=== PATIENT | female | born 1955 | race Caucasian/White ===

== ENCOUNTER 2016-09-26 08:09 | Emergency (ER) | payer OTHER ==
[~2016-09-26] VITALS: Ht 144.8 cm; Wt 66.0 kg
[2016-09-26 08:41] VITALS: Ht 144.8 cm; Wt 66.0 kg
[2016-09-26] MEDS ORDERED: UDROBDM PO (09:00)
[2016-09-26] MEDS ORDERED: IBUP-1542 PO (09:00)
[2016-09-26] MEDS ORDERED: ALBU8.5H3 INH (09:00)
[2016-09-26] MEDS ORDERED: AZIT250T94 PO (09:00)
[2016-09-26] MEDS ORDERED: CETI10CA PO (09:00)
--- NOTE | 2016-09-26 09:09 | ERD ---
ER Documentation Chief Complaint Date/Time DATE: 09/26/16 TIME: 09:03 Chief Complaint NON-PRODUCTIVE COUGH X2 WEEKS WITH CHEST PAIN HPI Is a 61-year-old female who presents to the emergency department today complaining of a cough for the past 2-3 weeks. States she has tried some over- the-counter medications but she is unsure of the names. She does have a cough during the day but it is worse at night. Denies any sick contacts. Denies any fevers or chills. ROS All systems reviewed and are negative except as per history of present illness. Medications Home Meds Active Scripts Cetirizine Hcl* (Zyrtec*) 10 Mg Capsule, 10 MG PO DAILY, #10 TAB.CHEW Prov:RAUL PERALTA PA-C 09/26/16 Guaifenesin-Dextromethorphan* (Robitussin* DM) 100MG/10MG/5ML Syrup, 10 ML PO Q4H Y for COUGH for 5 Days, ML Prov:RAUL PERALTA PA-C 09/26/16 Albuterol Sulfate* (Proair HFA*) 8.5 Gm Hfa.aer.ad, 2 PUFF INH Q4, #1 INHALER Prov:RAUL PERALTA PA-C 09/26/16 Ibuprofen* (Motrin*) 600 Mg Tab, 600 MG PO Q6, #30 TAB Prov:RAUL PERALTA PA-C 09/26/16 Azithromycin* (Zithromax*) 250 Mg Tablet, 250 MG PO .ZPACK DIRECTED, #6 TAB TAKE 500 MG (2 TABS) THE FIRST DAY THEN 250 MG (1 TAB) DAYS 2-5 Prov:RAUL PERALTA PA-C 09/26/16 Physical Exam Vitals Vital Signs Date Time Temp Pulse Resp B/P Pulse Ox O2 Delivery O2 Flow Rate FiO2 09/26/16 08:41 97.9 65 18 152/80 98 Physical Exam Const: No acute distress Head: Atraumatic Eyes: Normal Conjunctiva ENT: Normal External Ears, Nose and Mouth. Neck: Full range of motion..~ No meningismus. Resp: Clear to auscultation bilaterally. No absent breath sounds. No wheezing. Cardio: Regular rate and rhythm, no murmurs Abd: Soft, non tender, non distended. Normal bowel sounds Skin: No petechiae or rashes Back: No midline or flank tenderness Ext: No cyanosis, or edema. No calf tenderness Neur: Awake and alert Psych: Normal Mood and Affect Procedures/MDM This is a 61-year-old female who presents to the emergency department a complaint of cough for the past 2-3 weeks. She has tried [id number] medications. Patient has no wheezing on physical exam. Her oxygen saturation is 98% respirations are 18. She is not febrile and has not had a fever. Do not feel the patient requires laboratory work or imaging. Given the patient's duration of symptoms I will treat the patient for possible bronchitis versus allergic rhinitis versus viral URI. I have low suspicion for strep pharyngitis , peritonsillar abscess, retropharyngeal abscess, otitis media, PNA, sinusitis, abscess, meningitis, sepsis, or other acute infectious bacterial process. Patient will be given a prescription for azithromycin, Zyrtec, Motrin, Robitussin. At this time the patient is stable for discharge and outpatient management. They should follow up with their PCP in the next 1-2. They may return to the emergency department sooner if symptoms persist or worsen. Patient understood and agreed with the plan. . Departure Diagnosis: Primary Impression: Cough Condition: Fair Patient Instructions: What Is Bronchitis?, Cough, Chronic, Uncertain Cause, ( Adult) [facility] Usted se cardozo hecho un examen mdico de control que le indica que no est en chapo condicin que requiera tratamiento urgente en el Departamento de Emergencia. Un estudio ms profundo y el tratamiento de marte condicin pueden esperar sin ningn riesgo hasta que usted sea atendida/o en el consultorio de marte mdico o chapo cl kulwant. Es responsabilidad suya arreglar chapo isabela para el seguimiento del breanna. MANEJO DE CONDICIONES NO URGENTES EN EL FUTURO 1) Si usted tiene un mdico de atencin primaria: Usted debera llamar a marte mdico de atencin primaria antes de venir al departamento de emergencia. Despus de las horas de consultorio, marte doctor o marte asociado/a est disponible por telfono. El mdico o enfermero de divya en el servicio telefnico puede asesorarle por tasia medio para atender el problema, o breanna contrario se puede programar chapo isabela. 2) Si usted no tiene un mdico de atencin primaria: Llame al mdico o clnica de referencia que aparece abajo tabatha las horas de consultorio para hacer chapo isabela para que le vean. CLINICAS: [place] [id number] [phone] [facility] [phone] [place] [id number] [phone] [facility]. [place] [phone] [facility] [place] [phone] [place] [id number] [phone] Additional Instructions: Llame al doctor MAANA y yakov chapo ISABELA PARA DENTRO DE 1-2 DAIGLE.Dgale a la secretaria que nosotros le instruimos hacer esta isabela.Avise o llame si marte condicin se empeora antes de la isabela. Regresa aqui si peor o no mejor. Take antibiotics as prescribed Take Motrin for pain All other medications as prescribed RAUL PERALTA PA-C Sep 26, 2016 09:09
== END 2016-09-26 09:25 | disposition home or self-care (01) ==
LOC: FTE 08:09
DX: R05 Cough (principal)
CPT/HCPCS: 99284

== ENCOUNTER 2017-12-27 10:40 | Emergency (ER) | END 2017-12-27 12:50 | disposition left against medical advice (07) ==